=== PATIENT | female | born 2005 | race Caucasian/White ===

== ENCOUNTER 2023-12-10 11:07 | Emergency (ER) | payer OTHER ==
[2023-12-10] MEDS ORDERED: Ibuprofen 200 MG TAB ONE (11:47)
[2023-12-10] MEDS ORDERED: Dexamethasone 4 MG TAB ONE (11:47)
[2023-12-10] MEDS ORDERED: Amoxicillin/Potassium Clav 875 MG TAB ONE (11:48)
== END 2023-12-10 12:00 | disposition home or self-care (01) ==
LOC: CSHERS 11:07
DX: J02.9 Acute pharyngitis, unspecified (principal)
CPT/HCPCS: 99283; J8540